=== PATIENT | male | born 1980 | race Caucasian/White ===

== ENCOUNTER 2019-12-09 20:30 | Inpatient (IN) | payer OTHER ==
[~2019-12-09] VITALS: Ht 182.9 cm; Wt 96.0 kg
[~2019-12-09 20:30] MED LIST: ATOM60; CIPR500; FLUO20; GENT.3OPSA OS; HYDACE5 PO; OMEP20ER; OXYACE5T PO; ZOLP5
[2019-12-09 21:27] LABS: BASOPHILS ABSOLUTE AUTO 0.04 K/mm3 (0.00-0.23); BASOPHILS PERCENT AUTO 0 % (0-2); EOSINOPHILS ABSOLUTE AUTO 0.02 K/mm3 (0.00-0.68); EOSINOPHILS PERCENT AUTO 0 % (0-6); Hematocrit 44.3 % (37.0-53.0); Hemoglobin 15.8 g/dL (13.5-17.5); IMMATURE GRAN ABSOLUTE AUTO 0.06 K/mm3 (0.00-0.10); IMMATURE GRAN PERCENT AUTO 0 % (0-1); LYMPHOCYTES ABSOLUTE AUTO 1.62 K/mm3 (0.84-5.20); LYMPHOCYTES PERCENT AUTO 12 % (21-46); MONOCYTES ABSOLUTE AUTO 0.78 K/mm3 (0.16-1.47); MONOCYTES PERCENT AUTO 6 % (4-13); Mean Corpuscular HGB 30.3 pg (26.0-34.0); Mean Corpuscular HGB Conc 35.7 g/dL (31.5-36.5); Mean Corpuscular Volume 85 fL (80-100); Mean Platelet Volume 11.1 fL (9.1-12.4); NEUTROPHILS ABSOLUTE AUTO 11.03 K/mm3 (1.96-9.15); NEUTROPHILS PERCENT AUTO 81 % (41-73); Platelet Count 188 K/mm3 (150-400); RDW Coefficient Variation 11.7 % (11.7-14.2); RDW Standard Deviation 35.7 fL (35.1-46.3); Red Blood Cell Count 5.22 M/mm3 (4.30-5.90); White Blood Cell Count 13.55 K/mm3 (4.00-11.30)
[2019-12-09 21:39] LABS: Alanine Aminotransfer (ALT/SGP 26 U/L (12-78); Albumin, Blood 3.8 g/dL (3.4-5.0); Alk Phos 68 U/L (50-136); Anion Gap 10 mmol/L (6-16); Aspartate Aminotrans (AST/SGOT 7 U/L (12-37); Blood Urea Nitrogen 13 mg/dL (8-24); Bun/Creatinine Ratio 16.3 (12.0-20.0); CO2, Blood 25 mmol/L (21-32); Calcium, Blood 9.1 mg/dL (8.5-10.1); Chloride, Blood 103 mmol/L (98-108); Globulin, Blood 3.8 g/dL (2.2-4.0); Glomerular Filtration Rate >60 (60-); Glucose, Blood 88 mg/dL (70-99); Potassium, Blood 3.6 mmol/L (3.5-5.5); Sodium, Blood 138 mmol/L (136-145); Total Protein, Blood 7.6 g/dL (6.4-8.2)
[2019-12-09 22:22] LABS: Source, Urine Clean Catch
[2019-12-09 22:24] LABS: Bilirubin, Urine Neg (Neg); Blood, Urine Neg (Neg); Glucose Qualitative, Urine Neg (Neg); Ketones, Urine 4+ (Neg); Leukocyte Esterase, Urine Neg (Neg); Nitrite, Urine Neg (Neg); Protein, Urine Neg (Neg); Specific Gravity, Urine 1.015 (1.003-1.022); Urobilinogen, Urine 2+ (Normal)
[2019-12-09 22:26] LABS: Appearance, Urine Clear (Clear); Color, Urine Amber (P-Yellow)
[2019-12-09] MEDS ORDERED: HYDR1TAB94 PO (23:38)
--- NOTE | 2019-12-10 06:04 | NUR ---
SHIFT SUMMARY: ELLEN HAS RESTED A SMALL AMOUNT TOWARDS THE END OF THE SHIFT. HE IS INDEPENDENT TO THE BATHROOM. HE STATES THAT HE HAS BEEN PASSING A SMALL AMOUNT OF GAS OVER THE LAST HOUR OR SO. HE STATES THAT THE PRESSURE IN HIS LLQ IS PARTIALLY RELIEVED BY THE GAS PASSING. HE DENIES HAVING A BOWEL MOVEMENT YET. HE IS NPO. IV TO RIGHT FOREARM PATENT. HE IS ABLE TO MAKE HIS NEEDS KNOWN. RATE AND RHYTM PER CAFE MANAGER IS NORMAL SINUS AT 92 BPM. HE DID REQUEST SOME TYLENOL FOR A HEADACHE. HE IS LYING COMFORTABLY IN BED WITH HIS CALL LIGHT IN REACH. HE DOES USE HIS CALL LIGHT APPROPRIATELY.
[2019-12-10 06:36] LABS: Anion Gap 8 mmol/L (6-16); Blood Urea Nitrogen 8 mg/dL (8-24); Bun/Creatinine Ratio 10.8 (12.0-20.0); CO2, Blood 23 mmol/L (21-32); Calcium, Blood 8.2 mg/dL (8.5-10.1); Chloride, Blood 108 mmol/L (98-108); Creatinine, Blood 0.74 mg/dL (0.60-1.20); Glomerular Filtration Rate >60 (60-); Glucose, Blood 83 mg/dL (70-99); Sodium, Blood 139 mmol/L (136-145)
--- NOTE | 2019-12-10 18:03 | NUR ---
SHIFT SUMMARY PT IS TOLERATING CLEAR LQS WELL BUT WHEN ATTEMPTING FULLL LQS BECAME BLOATED, NAUSEATED (NO EMESIS), AND INCREASE IN PAIN. ZOFRAN RESOLVED NAUSEA. AMBULATED IN HALLS.
[2019-12-11 05:21] LABS: BASOPHILS ABSOLUTE AUTO 0.03 K/mm3 (0.00-0.23); BASOPHILS PERCENT AUTO 0 % (0-2); EOSINOPHILS ABSOLUTE AUTO 0.13 K/mm3 (0.00-0.68); EOSINOPHILS PERCENT AUTO 2 % (0-6); Hematocrit 39.1 % (37.0-53.0); Hemoglobin 13.3 g/dL (13.5-17.5); IMMATURE GRAN ABSOLUTE AUTO 0.04 K/mm3 (0.00-0.10); IMMATURE GRAN PERCENT AUTO 1 % (0-1); LYMPHOCYTES ABSOLUTE AUTO 1.74 K/mm3 (0.84-5.20); LYMPHOCYTES PERCENT AUTO 22 % (21-46); MONOCYTES ABSOLUTE AUTO 0.57 K/mm3 (0.16-1.47); MONOCYTES PERCENT AUTO 7 % (4-13); Mean Corpuscular HGB 29.4 pg (26.0-34.0); Mean Corpuscular Volume 87 fL (80-100); Mean Platelet Volume 10.7 fL (9.1-12.4); NEUTROPHILS ABSOLUTE AUTO 5.49 K/mm3 (1.96-9.15); NEUTROPHILS PERCENT AUTO 69 % (41-73); Platelet Count 175 K/mm3 (150-400); RDW Coefficient Variation 11.9 % (11.7-14.2); RDW Standard Deviation 37.7 fL (35.1-46.3); Red Blood Cell Count 4.52 M/mm3 (4.30-5.90)
[2019-12-11 05:36] LABS: Anion Gap 6 mmol/L (6-16); Blood Urea Nitrogen 7 mg/dL (8-24); CO2, Blood 27 mmol/L (21-32); Calcium, Blood 8.3 mg/dL (8.5-10.1); Chloride, Blood 110 mmol/L (98-108); Creatinine, Blood 0.78 mg/dL (0.60-1.20); Glomerular Filtration Rate >60 (60-); Glucose, Blood 90 mg/dL (70-99); Potassium, Blood 3.8 mmol/L (3.5-5.5); Sodium, Blood 143 mmol/L (136-145)
--- NOTE | 2019-12-11 06:03 | NUR ---
SHIFT SUMMARY PT RESTED X4HRS THIS AM. AAOX4/ANXIOUS R/T LACK OF SLEEP. DISCOMFORT CONTROLLED WITH FENTANYL X1. NO NAUSEA/EMESIS. INDEPENDENT IN ROOM/DE LA TORRE WAYS. BOWEL TONES HYPO, PT REPORTING SMALL AMOUNTS FLATUS, NO BM SINCE ADMISSION. PT WITH 4 HRS REST POST MELATONIN THIS PM. PT SITTING UP IN BED THIS AM, WATCHING TV, NADN, WITH CALL LIGHT IN REACH.
--- NOTE | 2019-12-11 07:48 | NUR ---
pt sleeping wakes to verbal stimuli stated he slept well with the melatonin no nausea now hyperactive bt's no bm since being hosp
--- NOTE | 2019-12-11 09:33 | NUR ---
pt duane cl diet will adv to full pt stated last night it was the squash soup that made him sick vs the type of diet
--- NOTE | 2019-12-11 10:28 | NUR ---
IV SL PT WANTING TO AMB IN HALLWAY STATED HE HAD MILD NAUSEA AFTER HIS COFFEE PASSING FLATUS 01/20 FOR NAUSEA MILD PAIN WITH FLATUS TOLD PT TO GO SLOW WITH THE MEAL
--- NOTE | 2019-12-11 10:49 | NUR ---
dr mederos notifed for surg consult pt amb again in [facility] asked for prune juice ss by pt asked for his info to be given to [facility] for discharge
--- NOTE | 2019-12-11 10:51 | NUR ---
re called dr kulkarni sleeve ironer instead of mederos message left at office
--- NOTE | 2019-12-11 11:41 | NUR ---
pt reports having a small bowel movement min pain with it
--- NOTE | 2019-12-11 12:15 | NUR ---
DR RICHEY BY TO SEE PT HAVING NAUSEA AFTER BM
--- NOTE | 2019-12-11 17:30 | NUR ---
pt eating dinner stated he is still having liquid stools brown in color dec nausea with them wanting to amb after his meal
--- NOTE | 2019-12-12 06:33 | NUR ---
PT VSS T/O NIGHT. PT DID REP INC IN ABD PAIN W/NAUSEA THIS NOC. PT MED FOR PAIN AND NAUSEA X1 W/REP RELIEF. PT HAVING BROWN LIQ BM, REP INC PAIN AND NAUSEA W/BM. IV ABX CONT PER ORDERS. PT INDEP IN ROOM, DENIES DIZZINES WHEN UP. PT EAGER TO D/C HOME, PT EDUCATED ON ILLNESS AND IMPORTANCE OF COMPLETING ABX. WILL CONT TO MONITOR UNTIL REP GIVEN TO ONCOMING RN.
--- NOTE | 2019-12-12 10:38 | NUR ---
DR PAINTER AND DR OLSEN IN TO SEE PT.
[2019-12-12 10:39] LABS: BASOPHILS ABSOLUTE AUTO 0.03 K/mm3 (0.00-0.23); BASOPHILS PERCENT AUTO 1 % (0-2); EOSINOPHILS ABSOLUTE AUTO 0.09 K/mm3 (0.00-0.68); EOSINOPHILS PERCENT AUTO 1 % (0-6); Hematocrit 40.3 % (37.0-53.0); Hemoglobin 14.2 g/dL (13.5-17.5); IMMATURE GRAN ABSOLUTE AUTO 0.02 K/mm3 (0.00-0.10); IMMATURE GRAN PERCENT AUTO 0 % (0-1); LYMPHOCYTES ABSOLUTE AUTO 0.99 K/mm3 (0.84-5.20); LYMPHOCYTES PERCENT AUTO 16 % (21-46); MONOCYTES ABSOLUTE AUTO 0.47 K/mm3 (0.16-1.47); MONOCYTES PERCENT AUTO 8 % (4-13); Mean Corpuscular HGB 30.5 pg (26.0-34.0); Mean Corpuscular HGB Conc 35.2 g/dL (31.5-36.5); Mean Corpuscular Volume 87 fL (80-100); Mean Platelet Volume 10.3 fL (9.1-12.4); NEUTROPHILS ABSOLUTE AUTO 4.69 K/mm3 (1.96-9.15); NEUTROPHILS PERCENT AUTO 75 % (41-73); Platelet Count 195 K/mm3 (150-400); RDW Coefficient Variation 11.9 % (11.7-14.2); Red Blood Cell Count 4.66 M/mm3 (4.30-5.90); White Blood Cell Count 6.29 K/mm3 (4.00-11.30)
[2019-12-12 10:56] LABS: Alanine Aminotransfer (ALT/SGP 18 U/L (12-78); Albumin, Blood 3.3 g/dL (3.4-5.0); Alk Phos 54 U/L (50-136); Anion Gap 5 mmol/L (6-16); Aspartate Aminotrans (AST/SGOT 11 U/L (12-37); Bilirubin, Total 0.4 mg/dL (0.1-1.0); Blood Urea Nitrogen 8 mg/dL (8-24); Bun/Creatinine Ratio 10.1 (12.0-20.0); CO2, Blood 27 mmol/L (21-32); Calcium, Blood 8.6 mg/dL (8.5-10.1); Chloride, Blood 110 mmol/L (98-108); Creatinine, Blood 0.79 mg/dL (0.60-1.20); Globulin, Blood 3.3 g/dL (2.2-4.0); Glomerular Filtration Rate >60 (60-); Glucose, Blood 109 mg/dL (70-99); Sodium, Blood 142 mmol/L (136-145); Total Protein, Blood 6.6 g/dL (6.4-8.2)
[2019-12-12] MEDS ORDERED: METR500 PO (12:57)
[2019-12-12] MEDS ORDERED: CEFD300 PO (12:57)
--- NOTE | 2019-12-12 13:49 | NUR ---
DISCHARGED DC'D IV, CATHETER INTACT. REVIEWED DC PAPERWORK W/PT; VERBALIZED UNDERSTANDING. [facility] REQUEST. PT LEFT UNIT BY AMBULATION W/POSSESSIONS AND DC PAPERWORK IN HAND.
== END 2019-12-12 13:43 | disposition home or self-care (01) | DRG 872 ==
LOC: ER 20:30 → SURS 22:31
PROVIDERS: Internal Medicine; Physician Assistant; Surgery; ADMIT Internal Medicine
DX: A41.9 Sepsis, unspecified organism (principal); K57.20 Diverticulitis of large intestine with perforation and abscess without bleeding; E87.6 Hypokalemia; F17.210 Nicotine dependence, cigarettes, uncomplicated
CPT/HCPCS: 36415; 74176; 80048; 80053; 81003; 83690; 85025; 96361; 96365; 96375; 99285-25; A9270; J0696; J0744; J1650; J2270; J2405; J3010; J7030; J7120

== ENCOUNTER 2023-10-07 14:34 | Emergency (ER) | payer OTHER ==
[~2023-10-07] VITALS: Ht 182.9 cm; Wt 99.8 kg
[~2023-10-07 14:34] MED LIST changes: +CEFD300 PO; +HYDR1TAB94 PO; +METR500 PO
[2023-10-07 15:55] LABS: BASOPHILS ABSOLUTE AUTO 0.06 K/mm3 (0.00-0.23); BASOPHILS PERCENT AUTO 1 % (0-2); EOSINOPHILS ABSOLUTE AUTO 0.11 K/mm3 (0.00-0.68); EOSINOPHILS PERCENT AUTO 1 % (0-6); Hemoglobin 15.7 g/dL (13.5-17.5); IMMATURE GRAN ABSOLUTE AUTO 0.04 K/mm3 (0.00-0.10); IMMATURE GRAN PERCENT AUTO 0 % (0-1); LYMPHOCYTES ABSOLUTE AUTO 1.81 K/mm3 (0.84-5.20); LYMPHOCYTES PERCENT AUTO 15 % (21-46); MONOCYTES ABSOLUTE AUTO 0.79 K/mm3 (0.16-1.47); MONOCYTES PERCENT AUTO 7 % (4-13); Mean Corpuscular HGB 29.7 pg (26.0-34.0); Mean Corpuscular HGB Conc 34.9 g/dL (31.5-36.5); Mean Corpuscular Volume 85 fL (80-100); Mean Platelet Volume 10.9 fL (9.1-12.4); NEUTROPHILS ABSOLUTE AUTO 9.43 K/mm3 (1.96-9.15); NEUTROPHILS PERCENT AUTO 77 % (41-73); Platelet Count 213 K/mm3 (150-400); RDW Coefficient Variation 12.5 % (11.7-14.2); RDW Standard Deviation 38.3 fL (35.1-46.3); Red Blood Cell Count 5.28 M/mm3 (4.30-5.90); White Blood Cell Count 12.24 K/mm3 (4.00-11.30)
[2023-10-07 16:03] VITALS: BP 126/73
[2023-10-07 16:06] LABS: Albumin, Blood 4.3 g/dL (3.4-5.0); Albumin/Globulin Ratio 1.3 (0.8-1.8); Bilirubin, Total 0.5 mg/dL (0.1-1.0); Bun/Creatinine Ratio 17.4 (12.0-20.0); Calcium, Blood 9.1 mg/dL (8.5-10.1); Creatinine, Blood 0.86 mg/dL (0.60-1.20); Globulin, Blood 3.2 g/dL (2.2-4.0); Potassium, Blood 4.1 mmol/L (3.5-5.5); Total Protein, Blood 7.5 g/dL (6.4-8.2)
[2023-10-07] MEDS ORDERED: AMOCLA875 PO (16:54)
[2023-10-07] MEDS ORDERED: Percocet 5-3251 EACH PO (16:54)
== END 2023-10-07 17:09 | disposition home or self-care (01) ==
LOC: ER 14:34
PROVIDERS: Physician Assistant
DX: K57.32 Diverticulitis of large intestine without perforation or abscess without bleeding (principal); G20.A1 Parkinson's disease without dyskinesia, without mention of fluctuations; F17.200 Nicotine dependence, unspecified, uncomplicated
CPT/HCPCS: 74176; 80053; 83690; 85025; A9270; J1885